=== PATIENT | male | born 1940 ===

== ENCOUNTER 2016-12-02 16:06 | Emergency (ER) | payer MEDICARE ==
[2016-12-02 16:15] VITALS: BP 156/90
[2016-12-02] MEDS ORDERED: Lidocaine 2% PF * 5 ML VIAL INJ ONE ×2 (17:07→17:08)
--- NOTE | 2016-12-02 17:24 | UC ---
Laceration HPI - HPI Summary HPI Summary: Patient closed his right ring finger in the tailgate at 11:30 and he has two laceration on the side. He went to [facility] and they gave him him tetanus shot but there was no one there that could stitch it up. He reports constant pain, denies any numbness or tingling or decreased range of motion. He states the pain has actually improved since it happened. - History Of Current Complaint Chief Complaint: UCLaceration Stated Complaint: FINGER LAC Time Seen by Provider: 12/02/16 17:01 Hx Obtained From: Patient Laceration Location: Finger Mechanism Of Injury: Blunt Trauma - Allergies/Home Medications Allergies/Adverse Reactions: Allergies Allergy/AdvReac Type Severity Reaction Status Date / Time No Known Allergies Allergy Verified 12/02/16 16:16 Home Medications: Home Medications Diltiazem XR (NF) [Cartia XR (NF)] 1 tab PO DAILY 12/02/16 [History Confirmed ] Famotidine TAB* [Pepcid 20 MG TAB*] 1 tab PO DAILY 12/02/16 [History Confirmed 12/02/16] Upriorkpvrs-Ftlhwpvvrso-Dqhskp [Move Free Joint Health Ad] 1 cap PO DAILY [History Confirmed 12/02/16] Levothyroxine TAB* [Synthroid 150 MCG TAB*] 1 cap PO DAILY 12/02/16 [History Confirmed 12/02/16] Multiple Vitamins W/ Minerals [Centrum Silver 50+Men] 1 tab PO DAILY 12/02/16 [ History Confirmed 12/02/16] PMH/Surg Hx/FS Hx/Imm Hx Previously Healthy: Yes Endocrine History: Hypothyroidism Cardiovascular History: Hypertension GI/ History: Gastroesophageal Reflux - Surgical History Surgical History: None - Family History Known Family History: Positive: Cardiac Disease, Hypertension - Social History Occupation: Retired Lives: Alone Alcohol Use: Occasionally Substance Use Type: None Smoking Status (MU): Never Smoked Tobacco Review of Systems Constitutional: Negative Skin: Negative - laceration to distal right ring finger., Other Respiratory: Negative All Other Systems Reviewed And Are Negative: Yes Physical Exam Triage Information Reviewed: Yes Appearance: Well-Appearing Vital Signs: Initial Vital Signs Temp 98.1 F 12/02/16 16:12 Pulse 84 12/02/16 16:12 Resp 18 12/02/16 16:12 BP 156/90 12/02/16 16:12 Pulse Ox 97 12/02/16 16:12 Vital Signs Reviewed: Yes Eye Exam: Normal ENT Exam: Normal Neck exam: Normal Respiratory Exam: Normal Cardiovascular Exam: Normal Musculoskeletal Exam: Normal Skin Exam: Other - right distal ring finger has laceration of lateral side, that rotates around to the proximal nail but does ot penetrate the nail. rom intact. neuro-vasc intact. Laceration Repair - Laceration Repair 1 Description: Irregular Laceration Size After Repair: Length (cm) - 4.0cm x 0.5 cm Modified For Repair: No Closure Material: Sutures - seven stitches placed., Closure Method: Single Layer Suture Of: Skin Suture Type: Nylon Laceration Course/Dx - Course/Dx Course Of Treatment: Patient received 7 stitiches and was discharged home on kelfex 500 mg by mouth four times daily x 10 days. stitches removed in 10-14 days. Wound care reviewed clean and dry, change dressing daily. tetanus updated today at his doctors office. - Differential Dx - Laceration/Wound Differental Diagnoses: Laceration Provider Diagnoses: laceration Discharge - Discharge Plan Condition: Stable Disposition: HOME Prescriptions: Cephalexin CAP* [Keflex CAP*] 500 mg PO QID #40 cap Patient Education Materials: Care For Your Stitches (ED), Finger Laceration (ED ) Referrals: Spencer Virgen MD [Primary Care Provider] -
--- NOTE | 2016-12-02 18:05 | RAD ---
INDICATION: Right ring finger injury. TECHNIQUE: 3 views of the right ring finger were obtained. FINDINGS: There is focal soft tissue swelling and soft tissue defect adjacent to the distal phalanx. No fracture is seen. Joint spaces appear maintained. IMPRESSION: SOFT TISSUE INJURY, NO FRACTURE IS SEEN.
== END 2016-12-02 18:05 | disposition home or self-care (01) ==
LOC: UCEAST 16:06
DX: S61.214A Laceration without foreign body of right ring finger without damage to nail, initial encounter (principal); I10 Essential (primary) hypertension; E03.9 Hypothyroidism, unspecified; W22.8XXA Striking against or struck by other objects, initial encounter; Y93.9 Activity, unspecified
CPT/HCPCS: 12002; 73140; 99202; G0463